=== PATIENT | female | born 1995 | race African-American/Black ===

== ENCOUNTER 2021-08-05 15:49 | Emergency (ER) | payer BC, OTHER ==
[~2021-08-05] VITALS: Ht 149.9 cm; Wt 46.8 kg
[2021-08-05 16:56] LABS: BILIRUBIN,URINE NEGATIVE (NEG); CLARITY,URINE CLEAR; COLOR,URINE YELLOW; NITRITE,URINE NEGATIVE (NEG); PROTEIN,URINE NEGATIVE (NEG-TRACE); UROBILINOGEN,URINE 0.2 mg/dL (0.2 mg/dL)
[2021-08-05 17:05] LABS: BACTERIA,URINE 0 /HPF (0-FEW); RBC,URINE 0 /HPF (0-2); WBC,URINE >40 /HPF (0-4)
[2021-08-05 17:24] LABS: BASO % 0 % (0-3); EOS % 0 % (0-3); HEMATOCRIT 41.3 % (36.0-47.0); HEMOGLOBIN 14.1 g/dL (12.0-15.5); LYMPH # 1.7 x10^3/uL (1.0-4.8); LYMPH % 14 % (24-48); MEAN CORPUSCULAR HEMOGLOBIN 31 pg (25-35); MEAN CORPUSCULAR HGB CONC 34 g/dL (31-37); MEAN CORPUSCULAR VOLUME 90 fL (79-100); MONO # 0.6 x10^3/uL (0.0-1.1); MONO % 5 % (0-9); NEUT # 10.2 x10^3/uL (1.8-7.7); NEUT % 81 % (31-73); PLATELET COUNT 197 x10^3/uL (140-400); RED BLOOD COUNT 4.59 x10^6/uL (3.50-5.40); RED CELL DISTRIBUTION WIDTH 13.1 % (11.5-14.5); WHITE BLOOD COUNT 12.6 x10^3/uL (4.0-11.0)
[2021-08-05] MEDS ORDERED: cefTRIAXone IV Push 1 GM VIAL. IVP ONE (17:30)
[2021-08-05] MEDS ORDERED: IV NORMAL SALINE 1000ML BAG 1,000 ML IV SCH (17:30)
[2021-08-05] MEDS ORDERED: ACETAMINOPHEN 500 MG TABLET PO ONE (17:30)
[2021-08-05] MEDS ORDERED: IOHEXOL 300 MG/ML 100ML VIAL. IV ONE (17:30)
[2021-08-05] MEDS ORDERED: CONTRAST GIVEN. MC PRN (17:30)
[2021-08-05] MEDS ORDERED: fentaNYL PF VIAL 100 MCG/2 ML VIAL IVP ONE (17:30)
--- NOTE | 2021-08-05 18:10 | PHYS DOC ---
Past Medical History Past Medical History: No Pertinent History Past Surgical History: Cholecystectomy Smoking Status: Former Smoker Alcohol Use: None Drug Use: None General Adult EDM: Chief Complaint: ABDOMINAL PAIN HPI: HPI: Patient is a 26 year old female who presents with this morning began having sharp right lower quadrant pain that radiates across the abdomen. She is febrile and she does have burning with urination. Patient states she also has some foul-smelling vaginal discharge. She states she would like to be checked and treated for STDs today. Patient states when she is up and moving the pain worsens. Denies back pain, vaginal bleeding, nausea, vomiting, diarrhea, chest pain, shortness of air, cough, headache, dizziness, body aches. Has a history of cholecystectomy and a former smoker. Rating her pain at this time 6 out of 10. Review of Systems: Review of Systems: Constitutional: + fever or chills. [] Eyes: Denies change in visual acuity. [] HENT: Denies nasal congestion or sore throat. [] Respiratory: Denies cough or shortness of breath. [] Cardiovascular: Denies chest pain or edema. [] GI: + abdominal pain, denies nausea, vomiting, bloody stools or diarrhea. [] : + dysuria. + Vaginal discharge [] Musculoskeletal: Denies back pain or joint pain. [] Integument: Denies rash. [] Neurologic: Denies headache, focal weakness or sensory changes. [] Endocrine: Denies polyuria or polydipsia. [] Lymphatic: Denies swollen glands. [] Psychiatric: Denies depression or anxiety. [] Heart Score: C/O Chest Pain: No Current Medications: Current Medications Medications (Trade) Dose Ordered Sig/[facility] Start Time Stop Time Status Last Admin Dose Admin Acetaminophen (Tylenol) 1,000 mg 1X ONCE 08/05/21 17:30 08/05/21 17:31 DC 08/05/21 18:02 1,000 MG Ceftriaxone Sodium (Rocephin) 1 gm 1X ONCE 08/05/21 17:30 08/05/21 17:31 DC 08/05/21 18:03 1 GM Fentanyl Citrate (Fentanyl 2ml Vial) 50 mcg 1X ONCE 08/05/21 17:30 08/05/21 17:31 DC 08/05/21 17:44 50 MCG Info (CONTRAST GIVEN -- Rx MONITORING) 1 each PRN DAILY PRN 08/05/21 17:30 08/07/21 17:29 Iohexol (Omnipaque 300 Mg/ml) 75 ml 1X ONCE 08/05/21 17:30 08/05/21 17:31 DC 08/05/21 17:52 75 ML Sodium Chloride 1,000 ml @ 1,000 mls/hr Q1H 08/05/21 17:30 08/05/21 18:29 08/05/21 17:30 1,000 MLS/HR Allergies: Allergies: Allergies Coded Allergies Type Severity Reaction Last Updated Verified No Known Drug Allergies 08/05/21 No Physical Exam: PE: Constitutional: Well developed, well nourished, no acute distress, non-toxic appearance. [] HENT: Normocephalic, atraumatic, bilateral external ears normal, oropharynx moist, no oral exudates, nose normal. [] Eyes: PERRLA, EOMI, conjunctiva normal, no discharge. [] Neck: Normal range of motion, no tenderness, supple, no stridor. [] Cardiovascular:Heart rate regular rhythm, no murmur [] Lungs & Thorax: Bilateral breath sounds clear to auscultation [] Abdomen: Bowel sounds normal, soft, right lower to mid tenderness, no masses, no pulsatile masses. [] Skin: Warm, dry, no erythema, no rash. [] Back: No tenderness, no CVA tenderness. [] Extremities: No tenderness, no cyanosis, no clubbing, ROM intact, no edema. [] Neurologic: Alert and oriented X 3, normal motor function, normal sensory function, no focal deficits noted. [] Psychologic: Affect normal, judgement normal, mood normal. [] Current Patient Data: Labs: Laboratory Tests Test 08/05/21 16:25 08/05/21 16:33 08/05/21 17:15 Urine Collection Type Unknown Urine Color Yellow Urine Clarity Clear Urine pH 7.0 (<5.0-8.0) Urine Specific [place] 1.025 (1.000-1.030) Urine Protein Negative mg/dL (NEG-TRACE) Urine Glucose (UA) Negative mg/dL (NEG) Urine Ketones (Stick) Negative mg/dL (NEG) Urine Blood Negative (NEG) Urine Nitrite Negative (NEG) Urine Bilirubin Negative (NEG) Urine Urobilinogen Dipstick 0.2 mg/dL (0.2 mg/dL) Urine Leukocyte Esterase Moderate (NEG) Urine RBC 0 /HPF (0-2) Urine WBC >40 /HPF (0-4) Urine Squamous Epithelial Cells Mod /LPF Urine Bacteria 0 /HPF (0-FEW) Urine Mucus Mod /LPF POC Urine HCG, Qualitative Hcg negative (Negative) White Blood Count 12.6 x10^3/uL (4.0-11.0) H Red Blood Count 4.59 x10^6/uL (3.50-5.40) Hemoglobin 14.1 g/dL (12.0-15.5) Hematocrit 41.3 % (36.0-47.0) Mean Corpuscular Volume 90 fL (79-100) Mean Corpuscular Hemoglobin 31 pg (25-35) Mean Corpuscular Hemoglobin Concent 34 g/dL (31-37) Red Cell Distribution Width 13.1 % (11.5-14.5) Platelet Count 197 x10^3/uL (140-400) Neutrophils (%) (Auto) 81 % (31-73) H Lymphocytes (%) (Auto) 14 % (24-48) L Monocytes (%) (Auto) 5 % (0-9) Eosinophils (%) (Auto) 0 % (0-3) Basophils (%) (Auto) 0 % (0-3) Neutrophils # (Auto) 10.2 x10^3/uL (1.8-7.7) H Lymphocytes # (Auto) 1.7 x10^3/uL (1.0-4.8) Monocytes # (Auto) 0.6 x10^3/uL (0.0-1.1) Eosinophils # (Auto) 0.0 x10^3/uL (0.0-0.7) Basophils # (Auto) 0.0 x10^3/uL (0.0-0.2) Laboratory Tests 08/05/21 17:15 Microbiology 08/05/21 Wet Prep - Final, Complete Vital Signs: Vital Signs Date Time Temp Pulse Resp B/P (MAP) Pulse Ox O2 Delivery O2 Flow Rate FiO2 08/05/21 17:44 18 98 Room Air 08/05/21 16:12 100.2 104 101/59 (73) 100.2 EKG: EKG: [] Radiology/Procedures: Radiology/Procedures: [] Impression: [facility] [address] [place] [address] IMAGING REPORT Signed PATIENT: VELIA NAVARRO ACCOUNT: [id number] : 1995 LOCATION: ER AGE: 26 SEX: F EXAM STATUS: REG ER ORD. PHYSICIAN: TANIA MI APRN REASON: rlq pain, fever PROCEDURE: CT ABD PELV W/ IV CONTRST ONLY CT ABDOMEN+PELVIS W History: rlq pain, fever Comparison: None. Technique: After administration of intravenous contrast, helical CT of the abdomen and pelvis was performed from the lung bases through the ischial tuberosities. Coronal and sagittal reconstructions were obtained. 75 mL of Omnipaque 300 were used. One or more of the following dose reduction techniques were utilized: Automated exposure control (AEC), Adjustment of mA and/or kV according to patient size, Use of iterative reconstruction technique such as ASiR, CT scan done according to ALARA and image gently/image wisely Abdomen Findings: The visualized lung bases are clear. The liver, pancreas, spleen, and bilateral adrenal glands are normal. Cholecystectomy Symmetric renal enhancement. There is no focal renal mass. There is no h ydronephrosis. The visualized loops of small bowel are normal. The visualized loops of large bowel are normal. There is no evidence of bowel obstruction. Appendix is normal. There is no free fluid. There is no mesenteric or retroperitoneal adenopathy. The abdominal aorta is normal in caliber. Pelvis Findings: Urinary bladder is normal. No pelvic free fluid. There is no pelvic or inguinal adenopathy. There is no acute bony abnormality. IMPRESSION: No acute findings. Normal appendix. Electronically signed by: Yani Naranjo MD (08/05/2021 6:16 PM) [facility] DICTATED and SIGNED BY: YANI NARANJO MD DATE: 08/05/[id number] [facility] [address] [place] [address] IMAGING REPORT Signed PATIENT: VELIA NAVARRO ACCOUNT: [id number] : 1995 LOCATION: ER AGE: 26 SEX: F EXAM STATUS: REG ER ORD. PHYSICIAN: TANIA MI APRN REASON: PELVIC PAIN, POSSIBLE CERVICITIS PROCEDURE: PELVIS W/TV EXAMINATION: US PELVIS W/TV, 08/05/2021 7:19 PM CLINICAL INDICATION: Pelvic pain, possible cervicitis TECHNIQUE: Limited Grayscale, color and spectral Doppler ultrasound images of the pelvis via transvaginal approach. COMPARISON: None. FINDINGS: The exam was terminated early due to patient pain before the ovaries could be evaluated or adnexae fully evaluated. The uterus measures 6.4 x 4.9 x 3.3 cm. The endometrial stripe measures 7 mm in thickness. No myometrial mass. Small amount of simple free fluid. IMPRESSION: Incomplete exam, terminated early due to patient pain. The uterus is normal in appearance. There is a small amount of simple free fluid. Ovaries were not evaluated and adnexae not completely evaluated. Electronically signed by: Jud Healy MD (08/05/2021 8:37 PM) [facility] DICTATED and SIGNED BY: JUD HEALY MD DATE: 08/05/[id number] 0 Course & Med Decision Making: Course & Med Decision Making Pertinent Labs and Imaging studies reviewed. (See chart for details) See HPI. Alert and oriented x4. Ambulatory steady gait. Skin pink warm and dry. Afebrile. Speaks in full clear sentences. Abdomen is soft but tender to the right lower quadrant with radiation across the abdomen when I palpate. No rebound tenderness or rigidity. No guarding. Pelvic Exam: Bobbin Coil Winder present Abdomen: Right lower quadrant External Genitalia: Normal Skin Speculum: Normal vaginal mucosa, yellow cervical discharge Bimanual: No adnexal masses or tenderness, No CMT Patient did not tolerate a full ultrasound exam due to abdominal pain. CT abdomen pelvis shows no acute findings. Urinalysis shows infection. I will Send her home on Keflex and doxycycline. Patient is stable for discharge and is tolerating p.o. fluids. [] Dragon Disclaimer: Dragon Disclaimer: This electronic medical record was generated, in whole or in part, using a voice recognition dictation system. Departure Departure Impression: Primary Impression: Urinary tract infection Qualified Codes: N39.0 - Urinary tract infection, site not specified; R31.9 - Hematuria, unspecified Additional Impression: Concern about sexually transmitted disease in female without diagnosis Disposition: 01 HOME / SELF CARE / HOMELESS Condition: STABLE Referrals: NON,STAFF (PCP) Patient Instructions: Sexually Transmitted Disease, Urinary Tract Infection Additional Instructions: Follow-up with your primary care provider or transcription coordinator of your choice. Drink plenty of fluids. Take medication as prescribed and with food. If you are unable to tolerate fluids or start running a high fever or symptoms worsen return emergency room. Scripts Doxycycline Hyclate (DOXYCYCLINE HYCLATE) 100 Mg Capsule 1 CAP PO BID, #14 CAP Prov: TANIA MI CUSTOMER COMPLAINT SERVICE SUPERVISOR 08/05/21 Cephalexin (KEFLEX) 500 Mg Capsule 1 CAP PO TID, #30 CAP Prov: TANIA MI CUSTOMER COMPLAINT SERVICE SUPERVISOR 08/05/21 TANIA MI CUSTOMER COMPLAINT SERVICE SUPERVISOR Aug 05, 2021 18:10
--- NOTE | 2021-08-05 18:19 | RAD ---
CT ABDOMEN+PELVIS W History: rlq pain, fever Comparison: None. Technique: After administration of intravenous contrast, helical CT of the abdomen and pelvis was per formed from the lung bases through the ischial tuberosities. Coronal and sagittal reconstructions wer e obtained. 75 mL of Omnipaque 300 were used. One or more of the following dose reduction techniques were utilized: Automated exposure control (AEC), Adjustment of mA and/or kV according to patient size , Use of iterative reconstruction technique such as ASiR, CT scan done according to ALARA and image g ently/image wisely Abdomen Findings: The visualized lung bases are clear. The liver, pancreas, spleen, and bilateral adrenal glands are normal. Cholecystectomy Symmetric renal enhancement. There is no focal renal mass. There is no hydronephrosis. The visualized loops of small bowel are normal. The visualized loops of large bowel are normal. There is no evidence of bowel obstruction. Appendix is normal. There is no free fluid. There is no mesenteric or retroperitoneal adenopathy. The abdominal aorta is normal in caliber. Pelvis Findings: Urinary bladder is normal. No pelvic free fluid. There is no pelvic or inguinal adenopathy. There is no acute bony abnormality. IMPRESSION: No acute findings. Normal appendix. Electronically signed by: Shahbaz Naranjo MD (08/05/2021 6:16 PM) [facility]
[2021-08-05 18:23] VITALS: BP 102/65
[2021-08-05 18:38] LABS: CALCIUM 8.5 mg/dL (8.5-10.1); GFR 81.7; POTASSIUM 3.3 mmol/L (3.5-5.1)
[2021-08-05 18:44] LABS: ALBUMIN 3.7 g/dL (3.4-5.0); ALBUMIN/GLOBULIN RATIO 0.8 (1.0-1.7); TOTAL BILIRUBIN 0.4 mg/dL (0.2-1.0); TOTAL PROTEIN 8.1 g/dL (6.4-8.2)
--- NOTE | 2021-08-05 20:40 | RAD ---
EXAMINATION: US PELVIS W/TV, 08/05/2021 7:19 PM CLINICAL INDICATION: Pelvic pain, possible cervicitis TECHNIQUE: Limited Grayscale, color and spectral Doppler ultrasound images of the pelvis via transvag inal approach. COMPARISON: None. FINDINGS: The exam was terminated early due to patient pain before the ovaries could be evaluated or adnexae fully evaluated. The uterus measures 6.4 x 4.9 x 3.3 cm. The endometrial stripe measures 7 mm in thickness. No myometrial mass. Small amount of simple free fluid. IMPRESSION: Incomplete exam, terminated early due to patient pain. The uterus is normal in appearance . There is a small amount of simple free fluid. Ovaries were not evaluated and adnexae not completely evaluated. Electronically signed by: Jud Healy MD (08/05/2021 8:37 PM) [facility]
[2021-08-05] MEDS ORDERED: CEPH500C PO (21:10)
[2021-08-05] MEDS ORDERED: DOXY100C3 PO (21:10)
--- NOTE | 2021-08-06 16:51 | NUR ---
IP: Attempted to contact pt concerning covid results. No answer, left a voicemail to return the call.
[2021-08-06 18:29] LABS: GC PROBE Positive (Negative)
== END 2021-08-05 21:23 | disposition home or self-care (01) ==
LOC: ER 15:49
DX: N39.0 Urinary tract infection, site not specified (principal); Z20.822 Contact with and (suspected) exposure to COVID-19; R31.9 Hematuria, unspecified; Z20.2 Contact with and (suspected) exposure to infections with a predominantly sexual mode of transmission; Z87.891 Personal history of nicotine dependence; Z90.49 Acquired absence of other specified parts of digestive tract
CPT/HCPCS: 36415; 74177; 76830; 76856; 80053; 81001; 81025; 83690; 85025; 87086; 87426; 87491; 87591; 96361; 96374; 96375; 99285; J0696; J3010; J7030; Q0111; Q9967; U0003; U0005

== ENCOUNTER 2021-08-13 18:36 | Emergency (ER) | payer BC ==
[~2021-08-13] VITALS: Ht 149.9 cm; Wt 46.0 kg
[~2021-08-13 18:36] MED LIST: CEPH500C PO; DOXY100C3 PO
[2021-08-13 22:47] VITALS: BP 122/58
[2021-08-13] MEDS ORDERED: KETOROLAC 15 MG/ML VIAL. ONE (22:58)
[2021-08-13 23:01] LABS: BILIRUBIN,URINE NEGATIVE (NEG); CLARITY,URINE CLEAR; COLOR,URINE YELLOW; NITRITE,URINE NEGATIVE (NEG); PROTEIN,URINE NEGATIVE (NEG-TRACE); UROBILINOGEN,URINE 0.2 mg/dL (0.2 mg/dL)
--- NOTE | 2021-08-13 23:14 | PHYS DOC ---
Past Medical History Past Medical History: STD Past Surgical History: Other Additional Past Surgical Histo: gallstone removal Smoking Status: Never Smoker Alcohol Use: None Drug Use: None General Adult EDM: Chief Complaint: ABDOMINAL PAIN HPI: HPI: Patient is a 26-year-old female that presents today with right lower quadrant abdominal pain. Patient states she was here on 08/05/2021 and was seen for the same pain, she had blood work, ultrasound, and [employer] cultures done. 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 Patient presents today with the same pain and is continuing to take her antibiotics. Patient has no fever today and no vaginal discharge. Patient does state that she has pain with urination. Spoke with patient and informed her of her culture results she had not been notified. Review of Systems: Review of Systems: Constitutional: Denies fever or chills. [] Eyes: Denies change in visual acuity. [] HENT: Denies nasal congestion or sore throat. [] Respiratory: Denies cough or shortness of breath. [] Cardiovascular: Denies chest pain or edema. [] GI: Right lower quadrant abdominal pain [] : dysuria. [] Musculoskeletal: Denies back pain or joint pain. [] Integument: Denies rash. [] Neurologic: Denies headache, focal weakness or sensory changes. [] Endocrine: Denies polyuria or polydipsia. [] Lymphatic: Denies swollen glands. [] Psychiatric: Denies depression or anxiety. [] Heart Score: C/O Chest Pain: N/A Risk Factors: Risk Factors: DM, Current or recent (<one month) smoker, HTN, HLP, family history of CAD, obesity. Risk Scores: Score 0 - 3: 2.5% MACE over next 6 weeks - Discharge Home Score 4 - 6: 20.3% MACE over next 6 weeks - Admit for Clinical Observation Score 7 - 10: 72.7% MACE over next 6 weeks - Early Invasive Strategies Current Medications: Current Medications Medications (Trade) Dose Ordered Sig/[facility] Start Time Stop Time Status Last Admin Dose Admin Ketorolac Tromethamine (Toradol 15mg Vial) 15 mg STK-MED ONCE 08/13/21 22:58 08/13/21 22:58 DC Allergies: Allergies: Allergies Coded Allergies Type Severity Reaction Last Updated Verified No Known Drug Allergies 08/05/21 No Physical Exam: PE: Constitutional: Well developed, well nourished, no acute distress, non-toxic appearance. [] HENT: Normocephalic, atraumatic, bilateral external ears normal, oropharynx moist, no oral exudates, nose normal. [] Eyes: PERRLA, EOMI, conjunctiva normal, no discharge. [] Neck: Normal range of motion, no tenderness, supple, no stridor. [] Cardiovascular:Heart rate regular rhythm, no murmur [] Lungs & Thorax: Bilateral breath sounds clear to auscultation [] Abdomen: Bowel sounds normal, tenderness to right lower quadrant with palpation, Skin: Warm, dry, no erythema, no rash. [] Back: No tenderness, no CVA tenderness. [] Extremities: No tenderness, no cyanosis, no clubbing, ROM intact, no edema. [] Neurologic: Alert and oriented X 3, normal motor function, normal sensory function, no focal deficits noted. [] Psychologic: Affect normal, judgement normal, mood normal. [] Current Patient Data: Labs: Laboratory Tests Test 08/13/21 22:40 POC Urine HCG, Qualitative Hcg negative (Negative) Vital Signs: Vital Signs Date Time Temp Pulse Resp B/P (MAP) Pulse Ox O2 Delivery O2 Flow Rate FiO2 08/13/21 22:47 98.4 80 16 122/58 (79) 100 Room Air 98.4 EKG: EKG: [] Radiology/Procedures: Radiology/Procedures: [] Course & Med Decision Making: Course & Med Decision Making Pertinent Labs and Imaging studies reviewed. (See chart for details) Patient still has 3 days worth of antibiotics for both her chlamydia and gonorrhea treatment and her urinary tract infection treatment. Patient states her vaginal discharge has gone away, she has not experienced a fever since last week when she first came, patient is nontoxic in appearance, vital signs stable. Spoke to patient at length regarding her culture positives for gonorrhea and chlamydia, informed her the pain could be due to the fact that she still has an active infection, instructed patient to continue to finish her antibiotics, take ibuprofen as needed for pain, no sexual intercourse until antibiotics are completed, have sexual partner treated as well for gonorrhea and chlamydia, wear a condom until that treatment has occurred. Since patient does have pain with urination today I will recheck her urine, cultures from her past urine did not grow any bacteria. If her urine looks better we will have her continue the current antibiotic treatment, will give her a list of clinics that she can follow-up with in the area. Patient verbalizes understanding of the plan of care, and is agreeable with going home Guadalupe Disclaimer: Guadalupe Disclaimer: This electronic medical record was generated, in whole or in part, using a voice recognition dictation system. Departure Departure Impression: Primary Impression: Abdominal pain Qualified Codes: R10.31 - Right lower quadrant pain Additional Impressions: Chlamydia infection Cervicitis, acute gonococcal Disposition: HOME / SELF CARE / HOMELESS Condition: STABLE Referrals: NO PCP (PCP) Patient Instructions: Abdominal Pain, Women, Sexually Transmitted Disease, [id number] Additional Instructions: Continue to take all your antibiotics until completed No sexual intercourse until antibiotics completed, make sure your partner is also treated for sexually transmitted infection. Wear condom to avoid sexually transmitted infections in the future Return to the emergency department for increased pain that changes, increased vaginal discharge/vaginal bleeding, fever, or continue to have urinary pain even after antibiotics are completed Follow-up with your primary care physician or one of the clinics from the list that was given to you for further evaluation FIONA MCMAHON APRN Aug 13, 2021 23:13
[2021-08-13 23:18] LABS: BACTERIA,URINE FEW /HPF (0-FEW); RBC,URINE 0 /HPF (0-2)
[2021-08-13] MEDS ORDERED: KETOROLAC 15 MG/ML VIAL. IVP ONE (23:30)
[2021-08-13] MEDS ORDERED: IBUPROFEN 200 MG TABLET. PO ONE (23:30)
== END 2021-08-13 23:49 | disposition home or self-care (01) ==
LOC: ER 18:36
DX: R10.31 Right lower quadrant pain (principal); A74.9 Chlamydial infection, unspecified; A54.03 Gonococcal cervicitis, unspecified
CPT/HCPCS: 81001; 81025; 87086; 99283

== ENCOUNTER 2021-09-14 09:23 | Emergency (ER) | payer BC ==
[~2021-09-14] VITALS: Ht 149.9 cm; Wt 46.5 kg
[2021-09-14 09:50] VITALS: BP 106/66
--- NOTE | 2021-09-14 10:38 | PHYS DOC ---
Past Medical History Past Medical History: STD Past Surgical History: Other Additional Past Surgical Histo: gallstone removal Smoking Status: Never Smoker Alcohol Use: None Drug Use: None General Adult EDM: Chief Complaint: SEXUALLY TRANSMITTED DISEASE HPI: HPI: Patient is a 26 year old female who presents for STD treatment. Patient was seen at in the emergency room in July and treated for a UTI. Patient was also checked for gonorrhea and chlamydia at that time. Patient was started on Keflex and doxycycline. Patient return to the emergency room in August for continued abdominal pain. Patient was instructed to finish taking her antibiotics and urine culture was sent. Patient was contacted by the emergency room and told to return for Rocephin injection to treat STDs. Patient is denying vaginal discharge, odor, pain with urination or any complaints at this time. Patient reports last time she was sexually active was yesterday. States that boyfriend has not yet been treated for STDs. Review of Systems: Review of Systems: ROS At least 10 ROS systems have been reviewed and are negative except as documented in the HPI. General: Negative except as outlined in HPI above. Skin: Negative except as outlined in HPI above. HEENT: Negative except as outlined in HPI above. Neck: Negative except as outlined in HPI above. Respiratory: Negative except as outlined in HPI above.. Cardiovascular: Negative except as outlined in HPI above. Abdomen: Negative except as outlined in HPI above. : Negative except as outlined in HPI above. Back/MSK: Negative except as outlined in HPI above. Neuro: Negative except as outlined in HPI above. Psych: Negative except as outlined in HPI above. Heart Score: C/O Chest Pain: No Risk Factors: Risk Factors: DM, Current or recent (<one month) smoker, HTN, HLP, family history of CAD, obesity. Risk Scores: Score 0 - 3: 2.5% MACE over next 6 weeks - Discharge Home Score 4 - 6: 20.3% MACE over next 6 weeks - Admit for Clinical Observation Score 7 - 10: 72.7% MACE over next 6 weeks - Early Invasive Strategies Allergies: Allergies: Allergies Coded Allergies Type Severity Reaction Last Updated Verified No Known Drug Allergies 08/05/21 No Physical Exam: PE: Constitutional: Well developed, well nourished, no acute distress, non-toxic appearance. [] HENT: Normocephalic, atraumatic, bilateral external ears normal, oropharynx moist, no oral exudates, nose normal. [] Eyes: PERRLA, EOMI, conjunctiva normal, no discharge. [] Neck: Normal range of motion, no tenderness, supple, no stridor. [] Cardiovascular:Heart rate regular rhythm, no murmur [] Lungs & Thorax: Bilateral breath sounds clear to auscultation [] Abdomen: Bowel sounds normal, soft, no tenderness, no masses, no pulsatile masses. [] Skin: Warm, dry, no erythema, no rash. [] Back: No tenderness, no CVA tenderness. [] Extremities: No tenderness, no cyanosis, no clubbing, ROM intact, no edema. [] Neurologic: Alert and oriented X 3, normal motor function, normal sensory function, no focal deficits noted. [] Psychologic: Affect normal, judgement normal, mood normal. [] Current Patient Data: Vital Signs: Vital Signs Date Time Temp Pulse Resp B/P (MAP) Pulse Ox O2 Delivery O2 Flow Rate FiO2 09/14/21 09:50 97.9 79 16 106/66 (79) 98 Room Air 97.9 EKG: EKG: [] Radiology/Procedures: Radiology/Procedures: [] Course & Med Decision Making: Course & Med Decision Making Pertinent Labs and Imaging studies reviewed. (See chart for details) [] 26-year-old female presents after being notified to return to the emergency room to have IM Rocephin for STD treatment. Patient's denying vaginal discharge, odor, dysuria or frequency. Patient reports last time she was sexually active was yesterday. Patient states that boyfriend has not been treated up to this point for STDs. Advised patient she would need to be retreated for STDs due to reexposure to infection. Educated patient on STDs and how transmission occurs. Advised patient she must avoid sex for 7 days to prevent transmission. All previous partners in the last 60 days should be notified, and treated as well. Patient verbalizes she understands discharge ins tructions. [place] Disclaimer: [place]upe Disclaimer: This electronic medical record was generated, in whole or in part, using a voice recognition dictation system. Departure Departure Impression: Primary Impression: Sexually transmitted disease (STD) Disposition: HOME / SELF CARE / HOMELESS Condition: STABLE Referrals: NO PCP (PCP) Patient Instructions: Sexually Transmitted Disease, [id number] Additional Instructions: You are seen in the emergency room for concerns with sexually transmitted disease. You were treated prophylactically with medications while in the ER. Refrain from having sexual intercourse for the next 7 days to help prevent transmission. All of your previous partners in the last 60 days should be notified, tested and treated as well to prevent transmission and reinfection. P gabinoase follow-up with your [facility] for repeat STD testing. Return to the emergency room for worsening symptoms or concerns. EMERGENCY DEPARTMENT GENERAL DISCHARGE INSTRUCTIONS Thank you for coming to [facility] Emergency Department (ED) today and trusting us with you care. We trust that you had a positive experience in our Emergency Department. If you wish to speak to the department management, you may call the Director at [phone]. YOUR FOLLOW UP INSTRUCTIONS ARE FOLLOWS: 1. Do you have a private Doctor? If you do not have a private doctor, please ask for a resource list of physicians or clinics that may be able to assist you with follow up care. 2. The Emergency Physicain has interpreted your x-rays. The X-Ray specialist will also review them. If there is a change in the findings, you will be notified in 48 hours when at all possible. 3. A lab test or culture has been done, your results will be reviewed and you will be notified if you need a change in treatment. ADDITIONAL INSTRUCTIONS AND INFORMATION: 1. Your care today has been supervised by a physician who is specially trained in emergency care. Many problems require more than one evaluation for a complete diagnosis and treatment. We recommend that you schedule your follow up appointment as recommended to ensure complete treatment of you illness or injury. If you are unable to obtain follow up care and continue to have a problem, or if your condition worsens, we recommend that you return to the ED. 2. We are not able to safely determine your condition over the phone nor are we able to give sound medical advice over the phone. For these safety reasons, if you call for medical advice we will ask you to come to the ED for further evaluation. 3. If you have any questions regarding these discharge instructions please call the ED at [phone]. SAFETY INFORMATION: In the interest of safety, wellness, and injury prevention; we encourage you to wear your sealbelt, if you smoke; quite smoking, and we encourage family to use a protective helmet for bicycling and other sporting events that present an increased risk for head injury. IF YOUR SYMPTOMS WORSEN OR NEW SYMPTOMS DEVELOP, OR YOU HAVE CONCERNS ABOUT YOUR CONDITION; OR IF YOUR CONDITION WORSENS WHILE YOU ARE WAITING FOR YOUR FOLLOW UP APPOINTMENT; EITHER CONTACT YOUR PRIMARY CARE DOCTOR, THE PHYSICIAN WHOSE NAME AND NUMBER YOU WERE GIVEN, OR RETURN TO THE ED IMMEDIATELY. MORAIMA TRUONG APRN Sep 14, 2021 10:38
[2021-09-14] MEDS ORDERED: AZITHROMYCIN 250 MG TABLET. PO ONE (10:45)
[2021-09-14] MEDS ORDERED: metroNIDAZOLE 500 MG TABLET PO ONE (10:45)
[2021-09-14] MEDS ORDERED: cefTRIAXone IM 500 MG VIAL. IM ONE (10:45)
== END 2021-09-14 11:46 | disposition home or self-care (01) ==
LOC: ER 09:23
DX: A64 Unspecified sexually transmitted disease (principal)
CPT/HCPCS: 96372; 99283; J0696